=== PATIENT | male | born 1960 | race Caucasian/White ===

== ENCOUNTER 2017-05-04 20:01 | Emergency (ER) | payer BC, OTHER, SELFPAY ==
[2017-05-04 21:05] LABS: #Eosinphils 0.2 thou/uL (0.0-0.7); #Lymphocytes 0.9 thou/uL (1.20-3.40); #Monocytes 0.5 thou/uL (0.11-0.59); #Neutrophils 6.2 thou/uL (1.40-6.50); %Basophils 0.5 % (0.0-1.0); %Eosinophils 2.8 % (0.0-10.0); %Lymphocytes 11.7 % (21.0-51.0); %Monocytes 6.6 % (0.0-10.0); Hematocrit 46.5 % (42.0-52.0); White Blood Cell (WBC) Count 7.8 thou/uL (4.8-10.8)
[2017-05-04 21:25] LABS: ALT (SGPT) 42 U/L (8-55); AST (SGOT) 44 U/L (5-34); Alkaline Phosphatase 167 U/L (40-150); Anion Gap 19 mmol/L (10-20); BUN (Urea Nitrogen) 26 mg/dL (8.4-25.7); Bilirubin, Total 0.9 mg/dL (0.2-1.2); Calc. Creatinine Clearance 0 mL/min (70-130); Calcium 9.9 mg/dL (7.8-10.44); Carbon Dioxide 21 mmol/L (22-29); Chloride 104 mmol/L (98-107); Estimated GFR-MDRD 59; Globulin 4.2 g/dL (2.4-3.5); Protein, Total 8.4 g/dL (6.0-8.3)
--- NOTE | 2017-05-04 21:25 | RAD ---
PORTABLE CHEST ONE VIEW: Date: 05-04-17 Time: 8:37 p.m. History: Chest pain. FINDINGS: Comparison is made with exam 08-07-16. The heart size is borderline. No focal areas of pneumothorax, consolidation, aubree pulmonary edema o r pleural effusions are seen. IMPRESSION: No acute process. POS: [facility]
[2017-05-04 21:28] LABS: Troponin I 0.012 ng/mL (< 0.028)
[2017-05-04] MEDS ORDERED: Magnesium Sulfate 2 GM/100 ML BAG ONE (22:33)
== END 2017-05-04 23:55 | disposition left against medical advice (07) ==
LOC: ERS 20:01
DX: R07.9 Chest pain, unspecified (principal); E03.9 Hypothyroidism, unspecified; I25.10 Atherosclerotic heart disease of native coronary artery without angina pectoris; I11.0 Hypertensive heart disease with heart failure; I50.9 Heart failure, unspecified; I49.9 Cardiac arrhythmia, unspecified; I48.91 Unspecified atrial fibrillation; K21.9 Gastro-esophageal reflux disease without esophagitis; E11.9 Type 2 diabetes mellitus without complications; Z86.73 Personal history of transient ischemic attack (TIA), and cerebral infarction without residual deficits; Z79.82 Long term (current) use of aspirin; Z79.899 Other long term (current) drug therapy
CPT/HCPCS: 36415; 71010; 80053; 82553; 83735; 83880; 84484; 85025; 93005; 96365; J3475

== ENCOUNTER 2017-10-07 07:26 | Outpatient (CLI) | payer OTHER ==
--- NOTE | 2017-10-07 09:47 | CT ---
CT ABDOMEN: History: Possible incisional hernia. Pain for one year. Tummy tuck x 2. Technique: Contrast enhanced CT images of the abdomen obtained. IV and oral contrast was given. FINDINGS: The lung bases are unremarkable. Anterior lower abdominal surgical changes seen. The CT images do not extend inferiorly enough to cove r the entire incision site. If there is concern for anterior pelvic pathology including anterior carly ia correlation with CT of the pelvis is recommended. Correlate with location of the incision. The liver and spleen are unremarkable. The gallbladder has been surgically removed. The pancreas is u nremarkable. Adrenal glands and kidneys unremarkable. No evidence of periaortic lymphadenopathy is seen. The loops of small bowel and colon in the abdomen are unremarkable. IMPRESSION: 1. Post-surgical changes seen in the abdomen. 2. The pelvis could not be scanned as insurance would not give permission for us to scan the patient' s pelvis. If there is concern for pelvic pathology, repeat exam with CT of the pelvis is recommended. 3. Gastric mohini seen in the stomach. No other abdominal abnormality is seen. POS: [facility]
[2017-10-07] MEDS ORDERED: Iopamidol 370 76% 100 ML VIAL ONE (16:18)
== END 2017-10-07 07:27 | disposition home or self-care (01) ==
LOC: CT 07:26
PROVIDERS: ATTEND Family Medicine
DX: K43.2 Incisional hernia without obstruction or gangrene (principal); Z98.890 Other specified postprocedural states
CPT/HCPCS: 74160

== ENCOUNTER 2017-10-16 10:58 | Outpatient (CLI) | payer OTHER ==
[~2017-10-16 10:58] MED LIST: Iopamidol 370 76% 100 ML VIAL ONE
== END 2017-10-16 10:59 | disposition home or self-care (01) ==
LOC: BICCT 10:58
PROVIDERS: ATTEND Family Medicine
DX: K43.2 Incisional hernia without obstruction or gangrene (principal); Z98.890 Other specified postprocedural states
CPT/HCPCS: 72193

== ENCOUNTER 2018-03-26 10:51 | Inpatient (IN) | payer OTHER ==
[2018-03-26 11:37] LABS: #Basophils 0.1 thou/uL (0.0-0.2); #Eosinphils 0.1 thou/uL (0.0-0.7); #Monocytes 0.5 thou/uL (0.11-0.59); #Neutrophils 5.2 thou/uL (1.40-6.50); %Basophils 0.8 % (0.0-1.0); %Eosinophils 1.5 % (0.0-10.0); %Monocytes 6.9 % (0.0-10.0); %Neutrophils 75.8 % (42.0-75.0); Hemoglobin 16.6 g/dL (14.0-18.0); Mean Corpuscular HGB CONC 35.4 g/dL (32.0-36.0); Mean Corpuscular Hemoglobin 32.9 pg (27.0-31.0); Mean Platelet Volume 7.2 fL (7.4-10.4); Platelet Count 243 thou/uL (130-400); RBC Distribution Width 12.2 % (11.5-14.5); Red Blood Cell (RBC) Count 5.05 mill/uL (4.70-6.10); White Blood Cell (WBC) Count 6.9 thou/uL (4.8-10.8)
--- NOTE | 2018-03-26 11:40 | RAD ---
CHEST ONE VIEW: History: Emergency exam. Chest pain. Comparison: 05-04-17 FINDINGS: There is mild pulmonary venous congestion. No pneumothorax. No effusion. Cardiac silhouette is upper limits of normal. No acute osseous abnormality. IMPRESSION: Mild cardiomegaly and pulmonary venous congestion. POS: [facility]
[2018-03-26 11:58] LABS: ALT (SGPT) 32 U/L (8-55); AST (SGOT) 24 U/L (5-34); Albumin 4.1 g/dL (3.5-5.0); Alkaline Phosphatase 163 U/L (40-150); Anion Gap 13 mmol/L (10-20); BUN (Urea Nitrogen) 23 mg/dL (8.4-25.7); Bilirubin, Total 1.1 mg/dL (0.2-1.2); CK (CPK) 124 U/L (30-200); Calc. Creatinine Clearance 0 mL/min (70-130); Calcium 9.2 mg/dL (7.8-10.44); Carbon Dioxide 22 mmol/L (22-29); Chloride 102 mmol/L (98-107); Estimated GFR-MDRD 60; Globulin 3.5 g/dL (2.4-3.5); Glucose 356 mg/dL (70-105); Lipase 48 U/L (8-78); Potassium 4.1 mmol/L (3.5-5.1); Protein, Total 7.6 g/dL (6.0-8.3)
[2018-03-26 12:05] LABS: CKMB 3.3 ng/mL (0-6.6); Troponin I Less than 0.010 ng/mL (< 0.028)
[2018-03-26 12:12] LABS: Sodium 133 mmol/L (136-145)
[2018-03-26] MEDS ORDERED: Enoxaparin Sodium 30 MG/0.3 ML SYRINGE ONE ×2 (13:11→13:12)
[2018-03-26] MEDS ORDERED: Enoxaparin Sodium 100 MG/ML SYRINGE ONE (13:11)
--- NOTE | 2018-03-26 15:14 | HP ---
PRIMARY CARE PHYSICIAN: Dr. Irvin Monsalve. REASON FOR ADMISSION: Chest pain, atrial fibrillation with rapid ventricular response, acute on strip machine tender victorino systolic congestive heart failure exacerbation. HISTORY OF PRESENT ILLNESS: A 58-year-old male who has underlying history of hypertension, diabetes type 2, dyslipidemia, hypothyroidism, chronic systolic heart failure who presented to emergency room with complaint of chest pain and dyspnea. Patient reports that he was not feeling good for the last 2-3 days. He claims that on Friday, he worked very hard. He was in lot of stress on that . Last night he was having chest pain with diaphoresis. He thought indigestion and that is why he did not go to the hospital. This morning at work, he was feeling similar substernal chest pain w ith diaphoresis. He denies any associated nausea, but he was feeling shortness of breath. He denies any orthopnea, PND. He does report mild swelling. He was also feeling palpitation. He denies any dizziness or syncope. With these symptoms, he presented to emergency room, he was found with atrial fibrillation with RVR. In the emergency room, Cardizem drip was started. After that his heart rate w as under control. His chest x-ray showed pulmonary vascular congestion. The patient is being admitt ed to telemetry floor for further management. ALLERGIES: NEOSPORIN. CURRENT HOME MEDICATIONS: Ativan 1 mg as needed, pramipexole 0.5 mg at bedtime, glyburide 5 mg twice daily, Zoloft 50 mg daily, Synthroid 150 mcg p.o. daily, torsemide 40 mg twice daily, Protonix 40 mg p.o. daily, Ambien 10 mg at bedtime p.r.n., Aldactone 25 mg p.o. daily, Coreg 3.125 mg 3 times daily , potassium chloride 20 mEq twice daily, Lipitor 40 mg p.o. daily, aspirin 81 mg p.o. daily. REVIEW OF SYSTEMS: The following complete review of systems was negative, unless otherwise mentioned in the HPI or below: Constitutional: Weight loss or gain, ability to conduct usual activities. Skin: Rash, itching. Eyes: Double vision, pain. ENT/Mouth: Nose bleeding, neck stiffness, pain, tenderness. Cardiovascular: Palpitations, dyspnea on exertion, orthopnea. Respiratory: Shortness of breath, wheezing, cough, hemoptysis, fever or night sweats. Gastrointestinal: Poor appetite, abdominal pain, heartburn, nausea, vomiting, constipation, or diarr hea. Genitourinary: Urgency, frequency, dysuria, nocturia. Musculoskeletal: Pain, swelling. Neurologic/Psychiatric: Anxiety, depression. Allergy/Immunologic: Skin rash, bleeding tendency. Please see my HPI for pertinent positive and negative. All other review of systems reviewed and nega tive except as mentioned in the HPI. PAST MEDICAL HISTORY: Coronary artery disease with a history of one stent placed in 2013, chronic sy stolic heart failure with EF 25%-30%, history of left ventricular thrombus, hypertension, diabetes ty pe 2, paroxysmal atrial fibrillation, dyslipidemia, hypothyroidism. 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 PAST PSYCHIATRIC HISTORY: Reviewed and negative. FAMILY HISTORY: Positive for heart disease to several family members. His father also had 3 CABG. SOCIAL HISTORY: Patient lives at home. 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 He denies any smoking. He d rinks wine every day. He denies any other illicit drug abuse. EMERGENCY ROOM COURSE: Patient is given Lovenox 1 mg per kg, Cardizem drip was started. PHYSICAL EXAMINATION: VITAL SIGNS: When I saw at that time blood pressure 113/72, pulse 108 and irregular, respiratory rat e is 18, saturation 98% on room air, temperature 98.3. Weight 128 kilograms. GENERAL: The patient is currently alert, awake, no obvious acute distress. HEAD: Normocephalic, atraumatic. EYES: Pupils round, reactive to light. Extraocular muscle intact. ENT: Oropharynx within normal limits. Moist mucous membranes. No oral lesion, no pharyngeal erythe ma, no exudate. NECK: Supple, no JVD, no thyromegaly, no carotid bruit. LUNGS: Bibasilar coarse breath sounds. Reduced air entry. No accessory muscles of respiration in u se. CARDIAC: S1, S2 irregular. Systolic murmur noted at left lower sternal border as well as at apex. No gallop, no rub. ABDOMEN: Obesity present. Bowel sounds present, nontender, nondistended. No organomegaly, no mass, no suprapubic tenderness. BACK: Unremarkable, no CVA tenderness. EXTREMITIES: Upper extremity passive movements of all joints are normal. Lower extremity: Trace lo wer extremity edema noted. Good distal pulsation. SKIN: No skin rash. HEMATOLOGICAL SYSTEM: No lymphadenopathy. IMAGING DATA AND SIGNIFICANT LABORATORY DATA: EKG showing atrial fibrillation with rapid ventricular response. Chest x-ray, cardiomegaly with pulmonary vascular congestion. CBC: WBC 6.9, hemoglobin 16.6, platelet 243. BMP: Sodium 133, potassium 4.1, chloride 102, carbon dioxide 22, anion gap 13, BUN 23, creatinine 1.23, glucose 356, calcium 9.2. LFT: AST 24, ALT 32, alkaline phosphatase is 163 , albumin 4.1, lipase 48, CK 124, CK-MB 3.3, troponin I less than 0.010. ASSESSMENT AND PLAN/IMPRESSION: 1. Chest pain, most likely related with his underlying atrial fibrillation with rapid ventricular re sponse and congestive heart failure. We will do serial cardiac enzymes x3 and rule out acute coronar y syndrome. 2. Atrial fibrillation with rapid ventricular response. Continue Cardizem drip at a slow rate and t urn off if heart rate is less than 70 or blood pressure less than 100. Patient will need chronic ant icoagulation for high CHADS 2 score. We will continue Lovenox 1 mg per kg subcu twice daily. We spencer l consult Cardiology and we will obtain echocardiography. 3. Acute on chronic systolic congestive heart failure exacerbation stage C. The patient will be giv en Lasix 20 mg IV daily. The patient will need echocardiography to assess EF. If he has still a low EF then 35%, then we will consider AICD evaluation during this admission. Cardiology will be on the case. Based on his hemodynamics, we will consider beta jordon as well as MYLES inhibitor as tolerate d. 4. History of severe mitral regurgitation and tricuspid regurgitation based on prior echocardiograph y. We will repeat echocardiography to assess current status. 5. 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 We will continue patient's home dose of levothyroxine. 6. Hypertension. Currently, the patient is relatively low blood pressure because of Cardizem drip a nd that is why we will titrate blood pressure medication while in hospital. 7. Coronary artery disease. We will continue aspirin, statin, beta jordon therapy as tolerated. 8. Anxiety and depression. Continue home medication. 9. Diabetes type 2, not well controlled. We will continue with insulin as per sliding scale protoco l. Diabetic diet will be given. Resume patient's home medication and add glyburide. 10. Morbid obesity. Dietary education given, weight loss education given. 11. Deep venous thrombosis prophylaxis, patient is already on full dose of Lovenox therapy. 12. Gastrointestinal prophylaxis, Protonix 40 mg p.o. daily. CODE STATUS: The patient is FULL CODE. Patient does not have any surrogate decision maker. Disposition plan based on clinical course. We are expecting patient's stay in hospital more than 2 m idnights. Plan of care discussed with the patient in detail in the emergency room.
[2018-03-26] MEDS ORDERED: Acetaminophen 325 MG TAB PO PRN ×2 (15:19→16:21)
[2018-03-26] MEDS ORDERED: Ondansetron ODT 4 MG TAB SL PRN (15:19)
[2018-03-26] MEDS ORDERED: Ondansetron HCl/PF 4 MG/2 ML Vial IVP PRN ×2 (15:19→16:21)
[2018-03-26 15:55] VITALS: BMI 33.8
[2018-03-26] MEDS ORDERED: Artificial Tears 18 DROP/0.9 ML EA EYE PRN (16:21)
[2018-03-26] MEDS ORDERED: Milk Of Magnesia 30 ML UDCUP PO PRN (16:21)
[2018-03-26] MEDS ORDERED: Nitroglycerin 0.4 MG TAB (25 Tab Bottle) SL PRN (16:21)
[2018-03-26] MEDS ORDERED: Sodium Chloride 0.65% Nasal 44 ML BOT EA NARE PRN (16:21)
[2018-03-26] MEDS ORDERED: HumaLOG 300 UNITS/3 ML VIAL SC PRN (16:21)
[2018-03-26] MEDS ORDERED: Ondansetron ODT 4 MG TAB PO PRN (16:21)
[2018-03-26] MEDS ORDERED: Chloraseptic Spray 180 ml Bottle PO PRN (16:21)
[2018-03-26] MEDS ORDERED: hydrALAZINE 20 MG/ML VIAL SLOW IVP PRN (16:21)
[2018-03-26] MEDS ORDERED: HYDROcodone/Acetaminophen 5/325 mg Tablet PO PRN (16:21)
[2018-03-26] MEDS ORDERED: Loperamide HCl 2 MG CAP PO PRN (16:21)
[2018-03-26] MEDS ORDERED: Dextrose 50% Abboject 50 ML SYRINGE SLOW IVP PRN (16:21)
[2018-03-26] MEDS ORDERED: Eucerin (Mineral Oil/Petrolatum,White) 30 gm Jar TOP PRN (16:21)
[2018-03-26] MEDS ORDERED: Diltiazem 125 MG in Sodium Chloride 0.9% 100 ML IVPB SCH (16:21)
[2018-03-26] MEDS ORDERED: Loratadine 10 MG TAB PO PRN (16:21)
[2018-03-26] MEDS ORDERED: Dextrose 5% in Water 1,000 ML IV PRN (16:21)
[2018-03-26] MEDS ORDERED: Diabetic Tussin 200 MG/10 ML UDCUP PO PRN (16:21)
[2018-03-26] MEDS ORDERED: Senokot 8.6 MG TAB PO PRN (16:21)
[2018-03-26] MEDS ORDERED: Mag-Al 1200 mg/1200 mg/30 ML UDCUP PO PRN (16:21)
[2018-03-26 16:35] LABS: Troponin I 0.019 ng/mL (< 0.028)
[2018-03-26] MEDS: HumaLOG 300 UNITS/3 ML VIAL SC PRN (18:18)
[2018-03-26 19:14] LABS: Troponin I Less than 0.010 ng/mL (< 0.028)
[2018-03-26] MEDS: Carvedilol 3.125 MG TAB PO SCH (20:35)
[2018-03-26] MEDS: Pramipexole Di-HCl 0.25 MG TAB PO SCH (20:35)
[2018-03-26] MEDS: Enoxaparin Sodium 30 MG/0.3 ML SYRINGE SC SCH (20:37)
[2018-03-26] MEDS: Enoxaparin Sodium 100 MG/ML SYRINGE SC SCH (20:37)
[2018-03-26] MEDS: glyBURIDE 5 MG TAB PO SCH (20:37)
[2018-03-26] MEDS ORDERED: Dronedarone HCl 400 MG TAB PO SCH (21:00)
[2018-03-26] MEDS ORDERED: Enoxaparin Sodium 80 MG/0.8 ML SYRINGE SC SCH (21:00)
[2018-03-26] MEDS ORDERED: Atorvastatin Calcium 40 MG TAB PO SCH (21:00)
[2018-03-26 22:20] LABS: Bilirubin Negative (Negative); Blood, Urine Negative (Negative); Clarity CLEAR (Clear); Glucose, Urine (Dipstick) >=1000 mg/dL (Negative); Leukocyte Negative (Negative); Nitrite Negative (Negative); Protein, Urine (Dipstick) Negative (Neg-Trace); Specific Gravity, Urine 1.014 (1.002-1.036); pH, Urine 5.5 (5.0-9.0)
[2018-03-26 22:23] LABS: Bacteria/HPF None Seen HPF (None Seen); Hyaline Casts/LPF 0-3 HYALINE CAST LPF (0-3 Hyaline); RBC/HPF None Seen HPF (0-3); Squamous Epithelial 0-3 HPF (0-3); WBC/HPF 0-3 HPF (0-3)
[2018-03-26] MEDS: Zolpidem Tartrate 5 MG TAB PO PRN (23:44)
--- NOTE | 2018-03-27 02:10 | CON ---
DATE OF CONSULTATION: 03/26/2018 LOCATION: Room #[address] Garcia' nurse practitioner. PRIMARY CARE PHYSICIAN: Dr. Irvin Monsalve. PRIMARY PRESCRIPTION CLERK: Dr. Steven Woodward. REFERRING PHYSICIAN: Dr. Castellon. REASON FOR CARDIOLOGY CONSULTATION: Atrial fibrillation with rapid ventricular response and congesti ve heart failure. HISTORY OF PRESENT ILLNESS: Mr. Tellez is a 58-year-old male with a significant history of ischemic cardiomyopathy with chronic systolic heart failure, hypertension, insulin-dependent diabetes , dyslipidemia, thyroidectomy with hypothyroidism secondary to thyroidectomy and significant family h istory of coronary artery disease. The patient presents to the emergency department for fluttering i n his chest. This Friday, he works so hard outside under the hot weather. He was really stressed o ut that time and he started having really bad dry cough and cramping in his leg. Next day, he was do ing well, he did not have those symptoms. However, last night, feeling like heart jumping for 10 min utes, but he denies any other cardiac symptoms during that episode. In this morning around 09:00 to 10:30 until he arrived to the emergency department, he felt fluttering in his chest and he had broken out the sweating, feeling of heaviness in his chest, headache and lightheadedness. Due to those sym ptoms, he decided to present to the emergency department for further evaluation and treatment. At th e ER, a 12-lead EKG revealed the patient having atrial fibrillation with rapid ventricular response w ith heart rate up to 130-140. After patient received Cardizem drip, the patient converted back to si nus rhythm around 10:45. Then, the patient was transferred to the telemetry floor. Since then, the patient's heart rhythm remains in a sinus rhythm with heart rate 60-70s. The patient has a medical h istory of atrial fibrillation until 2-1/2 years ago. The patient was on amiodarone, but which was di scontinued due to secondary indication to the patient's history of some thyroid problem. The patient underwent a thyroidectomy in 2015. The patient does not have any atrial fibrillation since this adm ission. The patient's last EKG was done in 04/2017, which shows sinus rhythm. The patient underwent cardiac catheterization in 2012, which shows 20% stenosis in the RCA and left c ircumflex and 100% in the LAD. The patient had a stent placement x1 to LAD in 2012. The patient has a history of chronic systolic heart failure. Last EKG was done in 09/[address] Woodward's office which shows EF of 40% to 45% and diastolic dysfunction, apical wall dyskinesis, mild LAD, moderate mi tral valve regurgitation, aortic valve is sclerotic but opened well and mild tricuspid regurgitation. The patient's last stress test was done in 07/2016, which shows large OH in an anterior wall and ap ex, left ventricular chamber dilation and no reversible ischemia. During the initial Cardiology cons ult assessment, the patient denies chest pain, heaviness, tightness, discomfort in his chest, palpita tion or fluttering, shortness of breath, dizziness, lightheadedness, or any other cardiac complaints. PAST MEDICAL HISTORY: 1. Moderate left ventricular dysfunction, EF of 30% to 40%. Left ventricle apical thrombosis in 2012, status post stent x1 in the LAD in 04/2013, atrial fibrillation with RVR which convert back to IV amiodarone. The patient has atrial fibrillation about 2-1/2 years ago. 2. Insulin-dependent diabetes. 3. Hypertension. 4. Hyperlipidemia. 5. CVA in 2012 with no residual. 6. Pericarditis in 10/2013. PAST SURGICAL HISTORY: 1. Gastric sleeve in 2007. 2. Stent placement in the LAD in 04/2013. 3. Abdominoplasty with the operation for retained sponge. 4. Cholecystectomy in 2013. 5. Thyroidectomy in 2015. The patient does have a TSH checked every 6 months. FAMILY HISTORY: There is a significant family history of hypertension, diabetes, and coronary artery disease. The patient's father underwent 2 CABG surgery and history of CVA. The patient's mother roberto s diabetes, hypertension, and CVA. The patient has 3 siblings who all have hypertension, diabetes, a nd coronary artery disease. SOCIAL HISTORY: The patient is single. The patient lives by himself; however, the patient has a goo d support from the family and his friends who live close by. The patient denied tobacco, illicit andrea g abuse. The patient enjoyed occasional alcohol once a month. He drinks one cup of coffee in the mo rning. ALLERGIES: He is allergic to , BACTRIM, NEOMYCIN and SULFATE. HOME MEDICATIONS: Ambien 10 mg once a day, glyburide 5 mg twice a day, atorvastatin 40 mg once a day , aspirin 81 mg once a day, Zoloft 50 mg once a day, Protonix 40 mg twice a day, potassium chloride 2 0 mEq once a day, Mirapex 0.5 mg once a day, spironolactone 25 mg once a day, torsemide 20 mg twice a day, lorazepam 1 mg once a day at night as needed, levothyroxine 150 mcg once a day, carvedilol 3.12 5 mg 3 times a day, magnesium oxide 500 mg once a day and Levemir twice a day. REVIEW OF SYSTEMS: A 12-point review of systems is negative, unless otherwise mentioned in the HPI. PHYSICAL EXAMINATION: GENERAL: Well-developed and well-nourished without any acute distress. HEAD: Normocephalic and atraumatic. EYES: Extraocular muscle movements are intact. ENT AND MOUTH: Oral and nasal mucosa are moist without lesion. NECK: Supple and normal range of motion. No JVD noted. RESPIRATORY: Clear to auscultation bilaterally. No rales, rhonchi or wheezing noted. CARDIOVASCULAR: Regular rate and rhythm. Normal S1, S2. There are no S3 or S4. No murmurs, hives, or thrills noted. Carotid pulses are present without bruits or thrills. They have 2+ pulses in the bilateral lower extremities. No edema. ABDOMEN: Nontender. No mass to palpate. Bowel sounds are present. MUSCULOSKELETAL: The patient able to move all extremities without any difficulty. The patient denie d any claudication. NEUROLOGIC: The patient is alert and oriented x4. PSYCHIATRIC: Mood is appropriate. IMAGING: The patient's chest x-ray shows mild cardiomegaly with pulmonary venous congestion. LABORATORY DATA: WBC 6.9, hemoglobin 16.6, hematocrit 46.9, platelet 243. Sodium 133, potassium 4.1 , BUN 23, creatinine 1.23, glucose 356, AST 24, ALT 32, alkaline phosphate 163, creatinine kinase is 124, CK-MB is 3.3, troponin less than 0.010 and next one 0.019, lipase 48. ASSESSMENT AND PLAN: 1. Atrial fibrillation with rapid ventricular response. The patient has converted back to sinus rhy thm with diltiazem IV. However, the patient had a history of stent placement and last stress test sh owing no reversible ischemia; however, we would like to start Multaq instead of flecainide. Multaq 4 00 mg twice a day and he is on Lovenox twice a day. We would like to continue and we would like defe r to Dr. Woodward for oral anticoagulant management. 2. Ischemic cardiomyopathy. The last echocardiogram was on 09/2017 showed ejection fraction of 40% to 45%. The patient is stable. The patient denied any congestive heart failure symptom at this [facility]. His condition is stable with carvedilol, MYLES inhibitor, and Lasix 20 mg IV push twice a day. 3. Coronary artery disease with a history of stent placement in LAD in 2012. The patient's conditio n is stable at this moment. We would like to continue current medication. 4. Hypertension. The patient's blood pressure is stable at this moment with current medication. 5. Insulin-dependent diabetes. The patient is on a.c. and at bedtime blood glucose check with slidi ng scale insulin, which is managed by the primary care doctor. 6. Hyperlipidemia. The patient is on Lipitor 40 mg 1 every night. 7. Hypothyroidism. According to the patient, the patient's levothyroxine dosage was increased last time when he followed up with his doctor. His TSH has not been checked, we will check this moment. We would like to go ahead to recheck the patient's TSH at this time. Thank you for allowing the Cardiology Service to participate in care of this patient. We will follow along with the patient's care team and make recommendations as appropriate. From tomorrow, Dr. Kristan zhu will follow this patient.
[2018-03-27] MEDS: Levothyroxine 150 MCG TAB PO SCH (05:30)
[2018-03-27] MEDS: Furosemide 20 MG/2 ML VIAL SLOW IVP SCH ×2 (05:31→15:18)
[2018-03-27 06:08] LABS: #Basophils 0.1 thou/uL (0.0-0.2); #Eosinphils 0.2 thou/uL (0.0-0.7); #Lymphocytes 1.3 thou/uL (1.20-3.40); #Monocytes 0.5 thou/uL (0.11-0.59); #Neutrophils 3.8 thou/uL (1.40-6.50); %Basophils 1.2 % (0.0-1.0); %Eosinophils 2.9 % (0.0-10.0); %Lymphocytes 21.8 % (21.0-51.0); %Monocytes 8.7 % (0.0-10.0); %Neutrophils 65.4 % (42.0-75.0); Hemoglobin 14.7 g/dL (14.0-18.0); Mean Corpuscular HGB CONC 35.9 g/dL (32.0-36.0); Mean Corpuscular Hemoglobin 33.2 pg (27.0-31.0); Mean Corpuscular Volume 92.5 fL (78.0-98.0); Platelet Count 193 thou/uL (130-400); RBC Distribution Width 12.1 % (11.5-14.5); Red Blood Cell (RBC) Count 4.44 mill/uL (4.70-6.10); White Blood Cell (WBC) Count 5.8 thou/uL (4.8-10.8)
[2018-03-27 06:22] LABS: INR-International Normal Ratio 1.1; Prothrombin Time 14.1 SEC (12.0-14.7)
[2018-03-27 06:31] LABS: Anion Gap 11 mmol/L (10-20); BUN (Urea Nitrogen) 20 mg/dL (8.4-25.7); Calc. Creatinine Clearance 146 mL/min (70-130); Calcium 8.8 mg/dL (7.8-10.44); Carbon Dioxide 27 mmol/L (22-29); Cardiac Risk 3.1 (Less than 4.5); Chloride 101 mmol/L (98-107); Cholesterol 118 mg/dl (< 200 Desired); Estimated GFR-MDRD 78; Glucose 229 mg/dL (70-105); HDL Cholesterol 38 mg/dL (>60 Neg Risk); LDL Cholesterol, Calculated 60 mg/dL; Magnesium 1.8 mg/dL (1.6-2.6); Potassium 3.1 mmol/L (3.5-5.1); Sodium 136 mmol/L (136-145); Triglycerides 100 mg/dL (Less than 150); Uric Acid 7.8 mg/dL (3.5-7.2)
[2018-03-27] MEDS: Magnesium Oxide 250 MG TAB PO SCH (08:47)
[2018-03-27] MEDS: Dronedarone HCl 400 MG TAB PO SCH ×2 (08:47→17:38)
[2018-03-27] MEDS: Atorvastatin Calcium 40 MG TAB PO SCH (08:47)
[2018-03-27] MEDS: glyBURIDE 5 MG TAB PO SCH ×2 (08:48→21:21)
[2018-03-27] MEDS: Potassium Chloride 20 MEQ TAB PO SCH ×2 (08:48→17:38)
[2018-03-27] MEDS: Spironolactone 25 MG TAB PO SCH (08:48)
[2018-03-27] MEDS: Carvedilol 3.125 MG TAB PO SCH ×2 (08:49→21:21)
[2018-03-27] MEDS: Lisinopril 2.5 MG TAB PO SCH (08:50)
[2018-03-27] MEDS: Enoxaparin Sodium 100 MG/ML SYRINGE SC SCH ×2 (08:51→21:22)
[2018-03-27] MEDS: Enoxaparin Sodium 30 MG/0.3 ML SYRINGE SC SCH ×2 (08:51→21:22)
--- NOTE | 2018-03-27 11:01 | PDOC.PN ---
- Subjective Encounter Start Date: 03/27/18 Encounter Start Time: 08:40 -: old records requested/rev Patient seen and examined. No new complaints. No overnight events pt is converted to nsr feels better, no chest pain or dyspnea - Objective Resuscitation Status: Resuscitation Status FULL:Full Resuscitation MAR Reviewed: Yes Vital Signs & Weight: Vital Signs (12 hours) Temp Pulse Resp BP BP Pulse Ox 03/27/18 08:50 58 L 105/60 03/27/18 08:00 98.1 F 58 L 18 97 03/27/18 07:59 98.1 F 58 L 18 105/60 97 03/27/18 04:00 51 L 16 96/60 Weight Weight 279 lb I&O: 03/26/18 03/27/18 03/28/18 06:59 06:59 06:59 Intake Total 480 Balance 480 Result Diagrams: 03/27/18 05:23 03/27/18 05:23 Additional Labs: Accuchecks 03/27/18 03/26/18 03/26/18 06:03 21:54 16:41 POC Glucose 203 H 318 H 277 H EKG Reviewed by me: Yes (nsr) Phys Exam - Physical Examination Constitutional: NAD HEENT: PERRLA, moist MMs, sclera anicteric Neck: no JVD, supple Respiratory: no wheezing, no rales, no rhonchi Cardiovascular: RRR, no significant murmur, no rub Gastrointestinal: soft, non-tender, no distention, positive bowel sounds obesity+ Musculoskeletal: no edema, pulses present Neurological: non-focal, normal sensation, moves all 4 limbs Lymphatic: no nodes Psychiatric: normal affect, A&O x 3 Skin: no rash, normal turgor Dx/Plan (1) Acute on chronic systolic ACC/AHA stage C congestive heart failure Code(s): I50.23 - ACUTE ON CHRONIC SYSTOLIC (CONGESTIVE) HEART FAILURE Status : Acute (2) Atrial fibrillation with RVR Code(s): I48.91 - UNSPECIFIED ATRIAL FIBRILLATION Status: Acute (3) Chest pain Code(s): R07.9 - CHEST PAIN, UNSPECIFIED Status: Acute (4) Anxiety and depression Code(s): F41.9 - ANXIETY DISORDER, UNSPECIFIED; F32.9 - MAJOR DEPRESSIVE DISORDER, SINGLE EPISODE, UNSPECIFIED Status: Chronic (5) CAD (coronary artery disease) Code(s): I25.10 - ATHSCL HEART DISEASE OF [place] CORONARY ARTERY W/O ANG PCTRS Status: Chronic (6) Diabetes type 2, controlled Code(s): E11.9 - TYPE 2 DIABETES MELLITUS WITHOUT COMPLICATIONS Status: Chronic (7) Dyslipidemia Code(s): E78.5 - HYPERLIPIDEMIA, UNSPECIFIED Status: Chronic (8) GERD (gastroesophageal reflux disease) Code(s): K21.9 - GASTRO-ESOPHAGEAL REFLUX DISEASE WITHOUT ESOPHAGITIS Status: Chronic (9) Hypertension Code(s): I10 - ESSENTIAL (PRIMARY) HYPERTENSION Status: Chronic (10) Hypothyroidism Code(s): E03.9 - HYPOTHYROIDISM, UNSPECIFIED Status: Chronic (11) Severe mitral regurgitation by prior echocardiogram Code(s): I34.0 - NONRHEUMATIC MITRAL (VALVE) INSUFFICIENCY Status: Chronic (12) Severe tricuspid regurgitation by prior echocardiogram Code(s): I07.1 - RHEUMATIC TRICUSPID INSUFFICIENCY Status: Chronic (13) Hypokalemia Code(s): E87.6 - HYPOKALEMIA Status: Acute - Plan cont current plan of care * afib converted to nsr * he has high chads2 score, will need correction oral anticoagulant * medication reviewed as below * symptomatic treatment * continue lasix * cardiology following * repeat echo pending. * replace potassium Review of Systems - Review of Systems Eyes: negative: Pain, Vision Change, Conjunctivae Inflammation, Eyelid Inflammation, Redness, Other ENT: negative: Ear Pain, Ear Discharge, Nose Pain, Nose Discharge, Nose Congestion, Mouth Pain, Mouth Swelling, Throat Pain, Throat Swelling, Other Respiratory: negative: Cough, Dry, Shortness of Breath, Hemoptysis, SOB with Excertion, Pleuritic Pain, Sputum, Wheezing Cardiovascular: negative: chest pain, palpitations, orthopnea, paroxysmal nocturnal dyspnea, edema, light headedness, other Gastrointestinal: negative: Nausea, Vomiting, Abdominal Pain, Diarrhea, Constipation, Melena, Hematochezia, Other Genitourinary: negative: Dysuria, Frequency, Incontinence, Hematuria, Retention , Other Musculoskeletal: negative: Neck Pain, Shoulder Pain, Arm Pain, Back Pain, Hand Pain, Leg Pain, Foot Pain, Other Skin: negative: Rash, Lesions, Ramirez, Bruising, Other - Medications/Allergies Allergies/Adverse Reactions: Allergies Allergy/AdvReac Type Severity Reaction Status Date / Time bacitracin Allergy Mild Rash Verified 03/26/18 15:48 [From Neosporin ([id number])] bacitracin zinc Allergy Mild Rash Verified 03/26/18 15:48 [From Neosporin ([id number])] neomycin sulfate Allergy Mild Rash Verified 03/26/18 15:48 [From Neosporin ([id number])] polymyxin B Allergy Mild Rash Verified 03/26/18 15:48 [From Neosporin ([id number])] Medications: Current Medications Acetaminophen (Tylenol) 650 mg PO Q4H PRN PRN Reason: Headache/Fever or Pain Hydrocodone Bitart/Acetaminophen ([place] 5/325) 1 tab PO Q4H PRN PRN Reason: Moderate Pain (4-6) Al Hydroxide/Mg Hydroxide (Maalox) 30 ml PO Q6H PRN PRN Reason: Heartburn or Indigestion Artificial Tears (Tears Naturale) 0 drop EA EYE PRN PRN PRN Reason: Dry Eyes Aspirin (Aspirin Chewable) 81 mg PO DAILY [facility] [place] Last Admin: 03/27/18 08:48 Dose: 81 mg Atorvastatin Calcium (Lipitor) 40 mg PO DAILY [facility] [place] Last Admin: 03/27/18 08:47 Dose: 40 mg Carvedilol (Coreg) 3.125 mg PO BID [facility] [place] Last Admin: 03/27/18 08:49 Dose: 3.125 mg Dextrose/Water (Dextrose 50%) 25 gm SLOW IVP PRN PRN PRN Reason: Hypoglycemia Dronedarone (Multaq) 400 mg PO BID-[facility] Last Admin: 03/27/18 08:47 Dose: 400 mg Enoxaparin Sodium (Lovenox) 100 mg SC 0900,2100 [facility] [place] Last Admin: 03/27/18 08:51 Dose: 100 mg Enoxaparin Sodium (Lovenox) 30 mg SC BID [facility] [place] Last Admin: 03/27/18 08:51 Dose: 30 mg Furosemide (Lasix) 20 mg SLOW IVP 0600,1400 [facility] [place] Last Admin: 03/27/18 05:31 Dose: 20 mg Glucagon (Glucagon) 1 mg IM PRN PRN PRN Reason: Hypoglycemia Glyburide (Diabeta) 5 mg PO BID [facility] [place] Last Admin: 03/27/18 08:48 Dose: 5 mg Guaifenesin (Robitussin Sf) 200 mg PO Q4H PRN PRN Reason: Cough Hydralazine HCl (Apresoline) 10 mg SLOW IVP Q4H PRN PRN Reason: Systolic BP > 180 Dextrose/Water (D5w) 1,000 mls @ 0 mls/hr IV .Q0M PRN PRN Reason: Hypoglycemia Diltiazem HCl 125 mg/ Sodium (Chloride) 125 mls @ 5 mls/hr IVPB INF [facility]; Protocol Insulin Human Lispro (Humalog) 0 units SC .AGGRESSIVE SLIDING PRN PRN Reason: Aggressive Correctional Scale Last Admin: 03/26/18 18:18 Dose: 9 units Insulin Human Lispro (Humalog) 0 units SC .BEDTIME SLIDING SC PRN PRN Reason: Bedtime Correctional Scale Levothyroxine Sodium (Synthroid) 150 mcg PO 0600 [facility] [place] Last Admin: 03/27/18 05:30 Dose: 150 mcg Lisinopril (Zestril) 2.5 mg PO DAILY [facility] [place] Last Admin: 03/27/18 08:50 Dose: Not Given Loperamide HCl (Imodium) 2 mg PO PRN PRN PRN Reason: Diarrhea/Loose Stools Loratadine (Claritin) 10 mg PO DAILYPRN PRN PRN Reason: Sinus Symptoms Magnesium Hydroxide (Milk Of Magnesium) 30 ml PO DAILYPRN PRN PRN Reason: Constipation Magnesium Oxide (Magnesium Oxide) 500 mg PO [facility] Last Admin: 03/27/18 08:47 Dose: 500 mg Mineral Oil/White Petrolatum (Eucerin Cream) 0 gm TOP BIDPRN PRN PRN Reason: Dry Skin Nitroglycerin (Nitrostat) 0.4 mg SL Q5MIN PRN PRN Reason: Chest Pain Ondansetron HCl (Zofran Odt) 4 mg PO Q6H PRN PRN Reason: Nausea/Vomiting Ondansetron HCl (Zofran) 4 mg IVP Q6H PRN PRN Reason: Nausea/Vomiting Pantoprazole Sodium (Protonix) 40 mg PO DAILY [facility] [place] Last Admin: 03/27/18 08:50 Dose: 40 mg Phenol (Chloraseptic [place] 180 Ml Bot) 0 ml PO PRN PRN PRN Reason: Sore Throat Potassium Chloride (K-Dur) 40 meq PO BID-[facility] Stop: 03/27/18 17:01 Last Admin: 03/27/18 08:48 Dose: 40 meq Pramipexole Dihydrochloride (Mirapex) 0.5 mg PO HS [facility] [place] Last Admin: 03/26/18 20:35 Dose: Not Given Senna (Senokot) 2 tab PO HSPRN PRN PRN Reason: Constipation Sertraline HCl (Zoloft) 50 mg PO DAILY [facility] [place] Last Admin: 03/27/18 08:48 Dose: 50 mg Sodium Chloride ([place] Nasal [place] 0.65%) 0 ml EA NARE QIDPRN PRN PRN Reason: Nasal Congestion Spironolactone (Aldactone) 12.5 mg PO DAILY [facility] [place] Last Admin: 03/27/18 08:48 Dose: 12.5 mg Zolpidem Tartrate (Ambien) 5 mg PO HSPRN PRN PRN Reason: Insomnia Last Admin: 03/26/18 23:44 Dose: 5 mg
[2018-03-27] MEDS: HumaLOG 300 UNITS/3 ML VIAL SC PRN ×2 (11:05→17:56)
[2018-03-27] MEDS: Apixaban 5 MG TAB PO SCH (21:21)
[2018-03-27] MEDS: Amiodarone 200 MG TAB PO SCH (21:21)
[2018-03-27] MEDS: Pramipexole Di-HCl 0.25 MG TAB PO SCH (21:24)
[2018-03-27] MEDS: Zolpidem Tartrate 5 MG TAB PO PRN (21:24)
[2018-03-28 04:18] VITALS: TEMP 97.6
[2018-03-28] MEDS: Levothyroxine 150 MCG TAB PO SCH (05:03)
[2018-03-28 06:06] LABS: INR-International Normal Ratio 1.2; Prothrombin Time 14.8 SEC (12.0-14.7)
[2018-03-28 07:40] LABS: Anion Gap 11 mmol/L (10-20); BUN (Urea Nitrogen) 13 mg/dL (8.4-25.7); Calc. Creatinine Clearance 158 mL/min (70-130); Carbon Dioxide 28 mmol/L (22-29); Chloride 102 mmol/L (98-107); Estimated GFR-MDRD 86; Glucose 162 mg/dL (70-105); Magnesium 1.7 mg/dL (1.6-2.6); Potassium 3.8 mmol/L (3.5-5.1); Sodium 137 mmol/L (136-145)
[2018-03-28] MEDS ORDERED: Furosemide 40 MG TAB PO SCH (09:00)
[2018-03-28] MEDS: Magnesium Oxide 250 MG TAB PO SCH (09:09)
[2018-03-28] MEDS: Amiodarone 200 MG TAB PO SCH (09:10)
[2018-03-28] MEDS: Apixaban 5 MG TAB PO SCH (09:10)
[2018-03-28] MEDS: Atorvastatin Calcium 40 MG TAB PO SCH (09:11)
[2018-03-28] MEDS: Carvedilol 3.125 MG TAB PO SCH (09:11)
[2018-03-28] MEDS: glyBURIDE 5 MG TAB PO SCH (09:12)
[2018-03-28] MEDS: Lisinopril 2.5 MG TAB PO SCH (09:12)
[2018-03-28] MEDS: Spironolactone 25 MG TAB PO SCH (09:13)
--- NOTE | 2018-03-28 10:34 | DIS ---
DATE OF ADMISSION: 03/26/2018 DATE OF DISCHARGE: 03/28/2018 PRIMARY CARE PHYSICIAN: Irvin Monsalve M.D. DISCHARGE DISPOSITION: Home. PRIMARY DISCHARGE DIAGNOSES: 1. Acute on chronic systolic stage C congestive heart failure exacerbation. 2. Atrial fibrillation with rapid ventricular response. 3. Chest pain due to problem #1 and #2. 4. Hypokalemia, corrected. SECONDARY DISCHARGE DIAGNOSES: Chronic systolic heart failure, history of mitral and tricuspid regur gitation, hypothyroidism, hypertension, gastroesophageal reflux disease, dyslipidemia, diabetes type 2, coronary artery disease, obesity with BMI 34. PRIMARY PROCEDURES/OPERATIONS: None. RADIOLOGICAL INVESTIGATION: Chest x-ray showed pulmonary vascular congestion. Echocardiography show ed EF 35%-40%, moderate MR, mild TR, diastolic dysfunction. SIGNIFICANT LABORATORY DATA: WBC 5.8, hemoglobin 14.7, platelet 193. INR 1.2, sodium 137, potassium 3.8, BUN 13, creatinine 0.91, calcium 9.0, magnesium 1.7. Urinalysis normal. DISCHARGE MEDICATIONS: The patient will continue amiodarone 200 mg 2 tablets b.i.d. for 2 weeks, the n two tablets daily for 2 weeks and then 200 mg daily, Eliquis 5 mg p.o. b.i.d., aspirin 81 mg p.o. d aily, Coreg 3.125 mg p.o. b.i.d., Lasix 40 mg p.o. b.i.d., lisinopril 2.5 mg p.o. daily, Lipitor 40 m g p.o. daily, glyburide 5 mg p.o. b.i.d., Synthroid 150 mcg p.o. daily, Protonix 40 mg p.o. b.i.d., p otassium chloride 20 mEq p.o. daily, Mirapex 0.5 mg p.o. daily, Zoloft 50 mg p.o. daily, Aldactone 25 mg p.o. daily, Ambien 10 mg p.o. at bedtime p.r.n., lorazepam 1 mg p.o. at bedtime p.r.n., magnesium oxide 500 mg p.o. daily. CONTRAINDICATIONS: None. CODE STATUS: FULL CODE. INPATIENT CONSULTANTS: Cardiology group was following while in hospital. TEST RESULTS PENDING ON DISCHARGE: None. ALLERGIES: BACITRACIN, NEOMYCIN and ZINC. DISCHARGE PLAN: Post hospital, the patient will follow up with primary care physician in 1 week. Th e patient will make appointment with Dr. Woodward as instructed. He is instructed to follow up with [facility]. HOSPITAL COURSE: A 58-year-old male who was admitted by me on 03/26/2018. Please see my HPI for fur ther detail. The patient was having increasing shortness of breath, palpitation, chest discomfort an d dizziness. He was diagnosed with acute on chronic systolic congestive heart failure exacerbation a s well as atrial fibrillation with rapid ventricular response. He was admitted to telemetry floor. We treated him with a Cardizem drip. He spontaneously subsequently converted to sinus rhythm. His c ongestive heart failure, treated with IV Lasix. Cardiology was consulted and they agreed with the [facility] anticoagulation. Initially, we gave him Lovenox and subsequently we discussed the risk and primitivo efit of newer anticoagulant therapy and the patient agreed to continue with Eliquis, which was prescr ibed upon discharge. This patient has high CHADS 2 score and that is why he needs chronic anticoagul ation in view of paroxysmal atrial fibrillation. Regarding congestive heart failure, the patient is euvolemic now. He is on room air. He is ambulatory, tolerating p.o. well. He is asymptomatic and h e wants to go home. Regarding atrial fibrillation, cardiology initially started Multaq and subsequen tly they changed to amiodarone tapering dose prescription given by Dr. Woodward. The patient will co ntinue the Eliquis for anticoagulation therapy. PHYSICAL EXAMINATION: The patient is seen and examined at bedside today. VITAL SIGNS: Currently, temperature 97.6, pulse 64, respiratory rate 14, saturation 97% on room air, blood pressure 105/59, weight 279 pounds. GENERAL: The patient is currently alert, awake, no obvious acute distress. HEAD: Normocephalic, atraumatic. EYES: Pupils round, reactive to light. Extraocular muscle intact. ENT: Oropharynx within normal limits. Moist mucous membranes. No oral lesion, no pharyngeal erythe ma, no exudate. NECK: Supple, no JVD, no thyromegaly, no carotid bruit. LUNGS: Clear to auscultation without any rhonchi or rales. CARDIAC: S1, S2 regular without any murmur. ABDOMEN: Soft and benign. EXTREMITIES: No edema. NEUROLOGIC: Nonfocal examination. Overall, the patient is medically stable for discharge today.
[2018-03-28 10:42] VITALS: BP 117/64
--- NOTE | 2018-03-28 14:31 | ADD-CON ---
ADDENDUM DATE OF CONSULTATION: 03/26/2018 DATE OF ADMISSION: 03/26/2018 INDICATION FOR CONSULTATION: This is a 58-year-old gentleman who has atrial fibrillation with rapid ventricular response. Please refer to notes already dictated by the nurse practitioner, Akila Lott. This gentleman has had history of atrial fibrillation in the past, was on amiodarone in the past. Then, he developed thyroid problems, required I believe a thyroidectomy. He then has had no significant episodes of atrial fibrillation and now has developed in the last day or so fast heart rate, palpitations, and then presented to the emergency room and was found to have atrial fibrillation with rapid ventricular response, was given IV diltiazem and has converted back to normal sinus rhythm. He has had a history of coronary artery disease in the past, has undergone angioplasty and stent placement. He has had some decrease in left ventricular systolic function, which has actually improved since previous echocardiograms or stress testing. He had a stress test, I believe in 2016, which showed no evidence of ischemia, but he did have evidence of a scar in the anterior wall and apex. His echocardiogram in September of this year showed ejection fraction of 40%-45% with moderate mitral valve regurgitation and left atrial dilatation. He is very comfortable, has no complaints after he was converted back to sinus rhythm. PAST MEDICAL HISTORY, SOCIAL HISTORY, FAMILY HISTORY, REVIEW OF SYSTEMS: Please refer to the notes dictated by the nurse practitioner. PHYSICAL EXAMINATION: GENERAL: Reveals a very pleasant, well-developed, well-nourished gentleman who is in no acute distress. He is alert and oriented. VITAL SIGNS: Stable. He is afebrile, blood pressure is 109/69, respiratory rate 17, heart rate is about 80 beats per minute and is regular. HEENT: Unremarkable. CHEST: Clear to auscultation without rales, rhonchi, or wheezing. CARDIOVASCULAR: Exam reveals a regular rate and rhythm, normal S1, S2. I cannot hear any significant S3, S4. There were no significant murmurs, heaves, thrills, bruits, or rubs. He does have a very soft systolic murmur at the apex. ABDOMEN: Shows obesity with positive bowel sounds. EXTREMITIES: Show no clubbing, cyanosis, or edema. Pedal pulses are present. NEUROLOGIC: The patient appears to be intact without any focal motor deficits. SKIN: Warm and dry. IMAGING: The admission EKG did show decreased R-wave progression in V1 through V3 with Q-waves in V1 and V2 compared with a previous anteroseptal myocardial infarction. There was no evidence of ischemia with any ST segment elevations and I believe his enzymes have not been indicative of myocardial infarction and these troponins have remained negative. IMPRESSION: 1. Atrial fibrillation with rapid ventricular response, we will need to find an anti-arrhythmic medication for this gentleman or could discuss this case with zyglo inspector for possible ablation, but at this time, we will start him on Multaq 400 mg b.i.d. Due to his history of coronary artery disease, he may have underlying ischemia, has not yet been determined and he may need to undergo a repeat stress testing or cardiac catheterization to determine whether or not these may have an ischemic basis for the atrial fibrillation. 2. History of diabetes, blood sugar is elevated. We will leave the discretion with primary care physician. Further care of the patient will be determined by Dr. Woodward when he sees the patient tomorrow. We will keep the patient n.p.o. tomorrow morning in case the Dr. Woodward wishes to either perform a possible cardiac catheterization or further stress testing of the patient. We will also continue the Lovenox at this time, but we will hold it tonight. SUZI
== END 2018-03-28 11:16 | disposition home or self-care (01) | DRG 308 ==
LOC: ERS 10:51 → 2NO 15:06
PROVIDERS: ADMIT Internal Medicine; ATTEND Internal Medicine
DX: I48.0 Paroxysmal atrial fibrillation (principal); I50.23 Acute on chronic systolic (congestive) heart failure; I11.0 Hypertensive heart disease with heart failure; F41.9 Anxiety disorder, unspecified; F32.9 Major depressive disorder, single episode, unspecified; I25.10 Atherosclerotic heart disease of native coronary artery without angina pectoris; E11.9 Type 2 diabetes mellitus without complications; E78.5 Hyperlipidemia, unspecified; K21.9 Gastro-esophageal reflux disease without esophagitis; E03.9 Hypothyroidism, unspecified; I08.1 Rheumatic disorders of both mitral and tricuspid valves; E87.6 Hypokalemia; Z86.73 Personal history of transient ischemic attack (TIA), and cerebral infarction without residual deficits; I25.2 Old myocardial infarction; E66.01 Morbid (severe) obesity due to excess calories; Z68.34 Body mass index [BMI] 34.0-34.9, adult; Z95.5 Presence of coronary angioplasty implant and graft; I25.5 Ischemic cardiomyopathy
CPT/HCPCS: 36415; 36416; 71045; 80048; 80053; 80061; 81001; 82550; 82553; 83690; 83735; 83880; 84443; 84484; 84550; 85025; 85610; 93005; 93306; 96365; 96366; 96372; J1650; J1940; J7050

== ENCOUNTER 2018-07-07 12:54 | Emergency (ER) | payer OTHER ==
[2018-07-07 13:42] LABS: #Lymphocytes 0.4 thou/uL (1.20-3.40); #Neutrophils 8.6 thou/uL (1.40-6.50); %Basophils 0.5 % (0.0-1.0); %Eosinophils 0.3 % (0.0-10.0); %Lymphocytes 3.8 % (21.0-51.0); %Monocytes 9.9 % (0.0-10.0); %Neutrophils 85.5 % (42.0-75.0); Mean Corpuscular HGB CONC 32.2 g/dL (32.0-36.0); Mean Corpuscular Hemoglobin 30.8 pg (27.0-31.0); Mean Corpuscular Volume 95.8 fL (78.0-98.0); Mean Platelet Volume 7.3 fL (7.4-10.4); Platelet Count 151 thou/uL (130-400); RBC Distribution Width 11.8 % (11.5-14.5); Red Blood Cell (RBC) Count 4.88 mill/uL (4.70-6.10)
[2018-07-07] MEDS ORDERED: Acetaminophen 500 MG TAB ONE (13:57)
[2018-07-07 14:27] LABS: ALT (SGPT) 55 U/L (8-55); AST (SGOT) 45 U/L (5-34); Albumin 3.9 g/dL (3.5-5.0); Alkaline Phosphatase 132 U/L (40-150); Anion Gap 13 mmol/L (10-20); BUN (Urea Nitrogen) 12 mg/dL (8.4-25.7); Bilirubin, Total 1.2 mg/dL (0.2-1.2); Calc. Creatinine Clearance 0 mL/min (70-130); Calcium 9.3 mg/dL (7.8-10.44); Carbon Dioxide 27 mmol/L (22-29); Chloride 94 mmol/L (98-107); Estimated GFR-MDRD 52; Globulin 3.8 g/dL (2.4-3.5); Glucose 265 mg/dL (70-105); Protein, Total 7.7 g/dL (6.0-8.3); Sodium 130 mmol/L (136-145)
[2018-07-07 15:11] LABS: Bilirubin Small (Negative); Blood, Urine Large (Negative); Clarity CLOUDY (Clear); Glucose, Urine (Dipstick) >=1000 mg/dL (Negative); Leukocyte Small (Negative); Nitrite Negative (Negative); Protein, Urine (Dipstick) 30 mg/dL (Neg-Trace); Specific Gravity, Urine 1.026 (1.002-1.036); pH, Urine 5.5 (5.0-9.0)
[2018-07-07 15:13] LABS: Bacteria/HPF 1+ HPF (None Seen); Pathc Cast-AUWi Flag 0.43 (0-2.49); Squamous Epithelial None Seen HPF (0-3); WBC/HPF 21-50 HPF (0-3)
[2018-07-07 15:14] LABS: Yeast-AUWi Flag 84.7 (0-25.0)
[2018-07-07 15:32] LABS: Hyaline Casts/LPF 0-3 HYALINE CAST LPF (0-3 Hyaline); Yeast-All Forms None Seen HPF (None Seen)
--- NOTE | 2018-07-07 16:51 | RAD ---
SINGLE VIEW CHEST: Date: 07/07/18 COMPARISON: 03/26/18. HISTORY: Hematuria and fever. FINDINGS: Single view of the chest shows a normal sized cardiomediastinal silhouette. There is no evidence of c onsolidation, mass, or pleural effusion. The bones are unremarkable. IMPRESSION: No evidence of acute cardiopulmonary disease. POS: [facility]
== END 2018-07-07 17:29 | disposition home or self-care (01) ==
LOC: ERS 12:54
DX: J11.1 Influenza due to unidentified influenza virus with other respiratory manifestations (principal); R31.9 Hematuria, unspecified; I48.91 Unspecified atrial fibrillation; I25.10 Atherosclerotic heart disease of native coronary artery without angina pectoris; E03.9 Hypothyroidism, unspecified; K21.9 Gastro-esophageal reflux disease without esophagitis; I11.0 Hypertensive heart disease with heart failure; I50.9 Heart failure, unspecified; E11.9 Type 2 diabetes mellitus without complications; Z79.899 Other long term (current) drug therapy; Z86.73 Personal history of transient ischemic attack (TIA), and cerebral infarction without residual deficits; Z79.82 Long term (current) use of aspirin; Z79.891 Long term (current) use of opiate analgesic
CPT/HCPCS: 36415; 71045; 80053; 81003; 81015; 83605; 83880; 85025; 87040; 87077; 87086; 87186; 87804

== ENCOUNTER 2019-10-11 16:22 | Outpatient (CLI) | payer BC ==
--- NOTE | 2019-10-11 16:39 | RAD ---
Chest 2 views HISTORY: Atrial fibrillation. COMPARISON: 07/07/2018. FINDINGS: Cardiac silhouette and pulmonary vasculature are unremarkable. Mediastinum is midline. No c onfluent airspace consolidation, pneumothorax, or pleural fluid are apparent. Calcified granulomata are consistent with healed granulomatous disease. Degenerative changes of the thoracic spine are apparent on the lateral view. IMPRESSION: No active cardiopulmonary abnormalities are demonstrated.
== END 2019-10-11 16:23 | disposition home or self-care (01) ==
LOC: BICRAD 16:22
PROVIDERS: ATTEND Internal Medicine Cardiovascular Disease
DX: I48.0 Paroxysmal atrial fibrillation (principal)
CPT/HCPCS: 71046

== ENCOUNTER 2019-12-15 20:13 | Observation (INO) | payer BC ==
--- NOTE | 2019-12-15 20:43 | RAD ---
Exam: Chest one view HISTORY:Chest pain Comparison: 07/07/2018 FINDINGS: Cardiac silhouette: Normal Aorta: Unremarkable Pulmonary vessels: Normal Costophrenic angles: Clear LUNGS: No masses or consolidation. Pneumothorax: None Osseous abnormalities: None IMPRESSION: No acute cardiopulmonary process.
[2019-12-15 20:47] LABS: #Basophils 0.1 thou/uL (0.0-0.2); #Eosinphils 0.2 thou/uL (0.0-0.7); #Lymphocytes 1.2 thou/uL (1.20-3.40); #Monocytes 0.7 thou/uL (0.11-0.59); #Neutrophils 6.8 thou/uL (1.40-6.50); %Eosinophils 1.8 % (0.0-10.0); %Lymphocytes 13.3 % (21.0-51.0); %Monocytes 7.7 % (0.0-10.0); %Neutrophils 76.2 % (42.0-75.0); Hemoglobin 16.7 g/dL (14.0-18.0); Mean Corpuscular HGB CONC 33.4 g/dL (32.0-36.0); Mean Corpuscular Volume 95.8 fL (78.0-98.0); Mean Platelet Volume 8.8 fL (7.4-10.4); Platelet Count 231 thou/uL (130-400); Red Blood Cell (RBC) Count 5.22 mill/uL (4.70-6.10); White Blood Cell (WBC) Count 8.9 thou/uL (4.8-10.8)
[2019-12-15 21:47] LABS: Albumin 3.6 g/dL (3.5-5.0)
[2019-12-15 21:48] LABS: Chloride 100 mmol/L (98-107); Potassium 4.1 mmol/L (3.5-5.1); Sodium 134 mmol/L (136-145)
[2019-12-15 21:49] LABS: Calcium 8.2 mg/dL (7.8-10.44); Glucose 250 mg/dL (70-105)
[2019-12-15 21:50] LABS: Globulin 3.1 g/dL (2.4-3.5); Protein, Total 6.7 g/dL (6.0-8.3)
[2019-12-15 21:51] LABS: Anion Gap 14 mmol/L (10-20); Bilirubin, Total 0.6 mg/dL (0.2-1.2); Carbon Dioxide 24 mmol/L (22-29)
[2019-12-15 21:52] LABS: Alkaline Phosphatase 106 U/L (40-110)
[2019-12-15 21:53] LABS: Calc. Creatinine Clearance 0 mL/min (70-130); Estimated GFR-MDRD 49
[2019-12-15 21:54] LABS: BUN (Urea Nitrogen) 27 mg/dL (8.4-25.7)
[2019-12-15 21:55] LABS: ALT (SGPT) 47 U/L (8-55); AST (SGOT) 38 U/L (5-34)
[2019-12-15] MEDS ORDERED: Aspirin Chewable 81 MG TAB ONE (23:16)
[2019-12-16 00:14] LABS: Troponin I 0.015 ng/mL (< 0.028)
[2019-12-16] MEDS ORDERED: Nitroglycerin 0.4 MG TAB (25 Tab Bottle) PO PRN (01:05)
[2019-12-16] MEDS ORDERED: HumaLOG 300 UNITS/3 ML VIAL SC PRN ×3 (01:07→11:35)
[2019-12-16] MEDS ORDERED: Dextrose 5% in Water 1,000 ML IV PRN (01:07)
[2019-12-16] MEDS ORDERED: Dextrose 50% Abboject 50 ML SYRINGE SLOW IVP PRN (01:07)
[2019-12-16] MEDS ORDERED: Sodium Chloride 0.9% 1,000 ML IV SCH (01:15)
[2019-12-16 02:09] VITALS: BMI 38.1
--- NOTE | 2019-12-16 02:40 | HP ---
TIME OF ASSESSMENT: 0030 hours. CHIEF COMPLAINT: Chest pain. PRIMARY CARE PHYSICIAN: Dr. Jeffery Monsalve. HISTORY OF PRESENT ILLNESS: Mr. Tellez is a 59-year-old gentleman, who presented to the emergency department today with complaints of pain to the left side of the sternum that started at 2:00 p.m. this afternoon. He states it was "pressure" at a 5/10 in severity, which he states has come and gone since then. At present, he states the pain has eased and is nearly gone. He states he was sitting down when the pain started. He states he had been contemplating going home given the normal EKG that was done in the ER with initial troponin being negative. He states he recalls strenuous activity yesterday and given some mild reproducible discomfort on palpation to the left side of the sternum. He thought maybe it was musculoskeletal in nature. The patient states he recently underwent an echocardiogram and believes he may have also undergone a stress test done by Dr. Woodward less than 6 months ago. He states his EF had improved and that everything was "normal." ED COURSE: The patient underwent an EKG in the emergency department that showed normal sinus rhythm with a heart rate of 75. He had T-wave inversion in lead aVL, otherwise no ST changes present or other EKG abnormalities. He was given 324 mg of aspirin p.o. A chest x-ray was obtained demonstrating no acute cardiopulmonary process. LABORATORY STUDIES: Done showed a white count of 8.9, hemoglobin 16.7, hematocrit 50, platelets 231, neutrophils 76.2%. Sodium 134, potassium 4.1, BUN 27, creatinine 1.46 compared to 1.14 in September. GFR 49 compared to 66 in September 2019. Glucose was 250. AST mildly elevated at 38. Initial troponin negative. BNP 56.9. Albumin 3.6. REVIEW OF SYSTEMS: He denies having any associated shortness of breath or diaphoresis. At present, he feels well in himself and denies any other complaints. Has not had any cough or hemoptysis. No nausea or vomiting. Denies any abdominal discomfort. States he briefly thought it may have been indigestion, but denies having any symptoms of reflux. All other review of systems negative. Of note, patient states the pain was nonradiating. ALLERGIES: 1. BACITRACIN. 2. NEOMYCIN SULFATE. 3. NEOSPORIN. 4. POLYMYXIN B. CURRENT MEDICATIONS: 1. Ozempic. 2. Jardiance. 3. Mupirocin. 4. Tylenol with Codeine. 5. Cephalexin. 6. Potassium chloride. 7. Eliquis. 8. Atorvastatin. 9. Spironolactone. 10. Torsemide. 11. Amiodarone. 12. Levothyroxine. 13. Glyburide. 14. Carvedilol. 15. Zetia. 16. Pantoprazole. 17. Levemir. 18. Zolpidem. 19. Lorazepam. PAST MEDICAL HISTORY: 1. Coronary artery disease. 2. CHF. 3. History of PA in 2013. 4. Atrial fibrillation. 5. Hypothyroidism. 6. Ischemic cerebrovascular accident. 7. GERD. 8. Type 2 diabetes mellitus. 9. Hypertension. 10. Obesity. PAST SURGICAL HISTORY: 1. Coronary artery stent x1. 2. Cholecystectomy. 3. Thyroidectomy. 4. Breast lift/reduction. 5. Tummy tuck. 6. Gastric sleeve. SOCIAL HISTORY: The patient denies any tobacco use, alcohol consumption, or illicit drug use. PHYSICAL EXAMINATION: GENERAL: The patient appears obese, well developed, and in no acute distress. VITAL SIGNS: Temperature 98.2, pulse 67, respirations 20, blood pressure 140/83 , O2 saturation 94% on room air. HEENT: Normocephalic and atraumatic. Pupils are equal, round, reactive to light. Sclerae icterus. Oropharynx is clear. NECK: Supple. No lymphadenopathy. LUNGS: Clear bilaterally without any wheezes, rales, or rhonchi. CARDIAC: Irregularly irregular. No murmurs. No reproducible chest wall tenderness on palpation. ABDOMEN: Soft, obese, nontender, nondistended. Normoactive bowel sounds present. No guarding or rigidity. EXTREMITIES: No lower leg swelling or edema. Peripheral pulses normal. NEUROLOGIC: Alert and oriented x3. No neuro deficits on exam. SKIN: Warm and dry. INVESTIGATIONS: As mentioned above in HPI. IMPRESSION AND PLAN: Mr. Tellez is a 59-year-old gentleman, presenting with chest pain, who has multiple comorbidities including coronary artery disease and previous coronary artery stent, who has a HEART score of 6, therefore being admitted for management of the following. 1. Chest pain. We will continue to trend troponins. The patient states he recently had an echo and a stress test, which he was told both looked good. We will need to obtain these records from Dr. Woodward's office. If we can confirm that he did in fact have a normal stress test recently, then we would need to consult Cardiology to determine if heart catheterization indicated if the patient continues with intermittent chest pain and/or troponins become elevated. Again, we will continue to trend troponins. Will keep NPO and continue daily aspirin. 2. Acute kidney injury. The patient with elevated creatinine of 1.46, GFR of 49 , BUN of 27. We will continue to monitor renal function and we will give gentle IV fluids given history of congestive heart failure. 3. Hypertension. Monitor blood pressure. Reconcile home medications once verified. 4. Type 2 diabetes mellitus. We will initiate sliding scale and monitor blood glucose. 5. Hypothyroidism. We will check TSH. Resume home medications once verified. 6. Hyperlipidemia. Reconcile home medication once verified. Lipid panel with morning labs. 7. Gastroesophageal reflux disease. Continue pantoprazole which he takes at home. 8. Atrial fibrillation. The patient will be on cardiac monitoring. Resume home medications once verified. 9. Deep venous thrombosis prophylaxis. Mechanical SCDs. The patient is also ambulatory. 10. Code status full. Surrogate decision maker is his sister, Candice Tripp. Job ID: [id number] [facility]
[2019-12-16 02:58] LABS: #Basophils 0.1 thou/uL (0.0-0.2); #Eosinphils 0.1 thou/uL (0.0-0.7); #Monocytes 0.5 thou/uL (0.11-0.59); #Neutrophils 4.3 thou/uL (1.40-6.50); %Basophils 1.1 % (0.0-1.0); %Eosinophils 2.4 % (0.0-10.0); %Lymphocytes 16.3 % (21.0-51.0); %Monocytes 8.4 % (0.0-10.0); %Neutrophils 71.8 % (42.0-75.0); Hemoglobin 15.9 g/dL (14.0-18.0); Mean Corpuscular Hemoglobin 32.8 pg (27.0-31.0); Mean Corpuscular Volume 96.7 fL (78.0-98.0); Mean Platelet Volume 7.6 fL (7.4-10.4); Platelet Count 192 thou/uL (130-400); RBC Distribution Width 12.3 % (11.5-14.5); Red Blood Cell (RBC) Count 4.85 mill/uL (4.70-6.10)
[2019-12-16 03:15] LABS: Anion Gap 15 mmol/L (10-20); BUN (Urea Nitrogen) 25 mg/dL (8.4-25.7); Calc. Creatinine Clearance 123 mL/min (70-130); Calcium 8.6 mg/dL (7.8-10.44); Carbon Dioxide 26 mmol/L (22-29); Cardiac Risk 2.5 (Less than 4.5); Chloride 101 mmol/L (98-107); Cholesterol 108 mg/dl (< 200 Desired); Estimated GFR-MDRD 57; Glucose 147 mg/dL (70-105); HDL Cholesterol 43 mg/dL (>60 Neg Risk); LDL Cholesterol, Calculated 53 mg/dL; Magnesium 1.9 mg/dL (1.6-2.6); Potassium 3.7 mmol/L (3.5-5.1); Sodium 138 mmol/L (136-145); Triglycerides 60 mg/dL (Less than 150); Troponin I 0.031 ng/mL (< 0.028)
[2019-12-16] MEDS ORDERED: Zolpidem Tartrate 5 MG TAB PO PRN (04:08)
[2019-12-16] MEDS ORDERED: Lorazepam 1 MG TAB PO PRN (04:08)
[2019-12-16] MEDS ORDERED: Lorazepam 1 MG TAB PO SCH (04:15)
[2019-12-16] MEDS ORDERED: Zolpidem Tartrate 5 MG TAB PO SCH (04:15)
[2019-12-16] MEDS ORDERED: Levothyroxine 175 MCG TAB PO SCH (06:00)
[2019-12-16] MEDS ORDERED: Amiodarone 200 MG TAB PO SCH (09:00)
[2019-12-16] MEDS ORDERED: Apixaban 5 MG TAB PO SCH (09:00)
[2019-12-16] MEDS ORDERED: Ezetimibe 10 MG TAB PO SCH (09:00)
[2019-12-16] MEDS ORDERED: Famotidine 20 MG TAB PO SCH (09:00)
[2019-12-16] MEDS ORDERED: Aspirin 325 mg Enteric Coated Tablet PO SCH (09:00)
[2019-12-16] MEDS ORDERED: Atorvastatin Calcium 40 MG TAB PO SCH (09:00)
[2019-12-16] MEDS ORDERED: Spironolactone 25 MG TAB PO SCH (09:00)
[2019-12-16] MEDS ORDERED: Torsemide 20 MG TAB PO SCH (09:00)
[2019-12-16] MEDS ORDERED: Carvedilol 3.125 MG TAB PO SCH (09:00)
[2019-12-16] MEDS ORDERED: Insulin Glargine 20 UNITS in Pre-Filled Syringe 1 EACH SC SCH (11:45)
[2019-12-16] MEDS ORDERED: glyBURIDE 5 MG TAB PO SCH ×2 (11:45→17:00)
--- NOTE | 2019-12-16 15:23 | EKG ---
Test Reason : Blood Pressure : / mmHG Vent. Rate : 075 BPM Atrial Rate : 075 BPM P-R Int : 188 ms QRS Dur : 100 ms QT Int : 398 ms P-R-T Axes : 025 -12 081 degrees QTc Int : 444 ms Normal sinus rhythm Low voltage QRS Septal infarct , age undetermined Abnormal ECG Confirmed by DEBBIE SALAZAR DO ([id number]), senior editor SYD GREEN ([id number]) on 12/16/2019 3:22:50 PM Referred By: Confirmed By:DEBBIE SALAZAR DO
[2019-12-16 16:08] VITALS: BP 137/75; TEMP 97.5
--- NOTE | 2019-12-16 21:38 | CON ---
DATE OF CONSULTATION: HISTORY: Ralph Tellez is a 59-year-old white male whom I initially evaluated in April 2013. The year prior to that, he underwent Cardiolite treadmill testing at [facility] and was told there was no evidence of ischemia. In addition, he became sick 5 days prior to that admission with nausea, vomiting, diarrhea, which most of his family members had contracted. Three days prior to admission, he mowed his lawn and noticed that he became short of breath doing that. However, he never had shortness of breath before. He had to stop 6-7 times to catch his breath, where in the past, he could mow the whole yard without difficulties. He denied any chest discomfort at that time. On the day prior to admission, he went to see his primary care physician at [facility] and was seen for gastroenteritis and increased shortness of breath. Apparently, an EKG was performed, which did not show any specific abnormalities. Later that day, at approximately 4 p.m., he began to have intense chest discomfort associated with shortness of breath and diaphoresis. The pain was worse with lying supine and it improved if he would sit and lean forward. There is no pleuritic component to the pain. This lasted approximately 45 minutes. He did not have any chest discomfort the rest of the day nor the following day. However, he felt extremely weak, fatigued, and short of breath with minimal exertion. He then went back to see his primary physician and repeat EKG was very abnormal and he was sent to [facility]. EKG in the emergency room showed anterolateral infarction with [address]-segment elevation in V1-V6. He also developed Q-waves anteriorly. He underwent cardiac catheterization, which revealed total occlusion of the mid LAD with no retrograde filling. There was a 50% lesion in the second diagonal. The circumflex had a 20% mid stenosis. The right coronary artery had 20% mid stenosis. He underwent thrombectomy of the LAD with a Pronto catheter. Resolute 2.5 x 30 mm stent was placed in the proximal LAD. His peak CK was 3212, MB 257.3. Troponin I 128.662. 12 hours after stent placement, he developed atrial fibrillation with fast ventricular response. He was treated with intravenous Cardizem and digoxin, placed on IV amiodarone. He ultimately converted back to sinus rhythm. 30 hours after placement of the stent, he was restarted on therapeutic Lovenox for his atrial fibrillation. Echo was technically difficult with ejection fraction of 30% to 35%. There was probable apical thrombus present. There was mild mitral and mild tricuspid regurgitation. He underwent transesophageal echo which did not reveal any evidence of left atrial appendage or left atrial thrombus. However, he did have a large thrombus in his left ventricular apex. It was felt that he should be anticoagulated for at least 3 months with Coumadin as well as continue with aspirin and Plavix for his drug-eluting stent. During that admission, his cholesterol was 170, triglycerides 112, HDL 41, LDL 107. He was discharged and then readmitted 9 days later with congestive heart failure which responded to diuretics. He was again admitted in June 2013 with community-acquired pneumonia versus bronchitis with congestive heart failure exacerbation. In July 2013, he was admitted with atypical chest pain. Cardiac enzymes were negative. In July 2013, he was seen in the office, he was walking 3 miles per day. He denied any chest discomfort during the walks. Echo revealed ejection fraction of 35% to 40% with mild anterior and apical hypokinesis, left atrial enlargement, moderate mitral regurgitation, mild tricuspid regurgitation , and mild pulmonic insufficiency. Echo revealed no evidence of pericardial effusion or LV thrombus. He was admitted in October 2013 with aching and possible fever and chills and developed pleuritic chest pain which was definitely worse when he was supine in bed. CT angiogram of the chest showed no evidence of pulmonary embolism. However, he did have a pericardial effusion and right-sided pleural effusion. He was placed on Motrin 600 b.i.d. and ultimately colchicine 0.6 mg b.i.d. to try to avoid an incidence in someone who is on aspirin, Plavix, and Coumadin. His pain improved. He also had paroxysmal episodes of atrial fibrillation and was placed on intravenous Cardizem, converted to sinus rhythm. During that admission, amiodarone was changed to 200 mg b.i.d. due to recurrence of atrial fibrillation. He has continued to be followed intermittently in the office. In March 2018 , he was admitted with atrial fibrillation with fast ventricular response. The amiodarone had been discontinued due to thyroid problems. He was resumed on his amiodarone in 2017. Overall, he has been doing quite well with ejection fraction of 40% to 45%. He has continued on Eliquis for his paroxysmal atrial fibrillation. 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 The area was tender to touch. He did have sharp pain lasting 30 seconds and then 5 to 10 minutes later, this recurred. This continued for approximately 8 hours and he came to the emergency room for further evaluation. He denies any pleuritic component to the pain. PAST MEDICAL HISTORY: Hypertension, diabetes, hyperlipidemia. He had acute pericarditis in 2013. He had a STEMI with total occlusion in the LAD and placement of drug-eluting stent in 2012. He had left ventricular thrombus, which resolved with anticoagulation. Paroxysmal atrial fibrillation. OPERATIONS: Gastric sleeve, thyroidectomy. MEDICATIONS: As listed in the chart. ALLERGIES: [id number]. SOCIAL HISTORY: He does not smoke. 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 He occasionally has wine. FAMILY HISTORY: Father had 3 bypass surgeries. REVIEW OF SYSTEMS: 12-point review of systems is otherwise unremarkable. PHYSICAL EXAMINATION: VITAL SIGNS: Blood pressure 137/75, pulse of 55. HEENT: PERRL. NECK: Supple. CHEST: Clear. CARDIAC: S1 and S2 normal without any S3, S4, or murmurs. ABDOMEN: Obese, normal bowel sounds. No tenderness. EXTREMITIES: Revealed no clubbing, cyanosis, or edema. NEUROLOGIC: Grossly intact. SKIN: Warm and dry. MUSCULOSKELETAL: Reveals tender left chest wall which reproduces pain. LABORATORY DATA: EKG reveals normal sinus rhythm, low voltage and septal infarction. Cardiac enzymes are unremarkable. CBC is unremarkable. TSH 8.4678. Cholesterol 108, triglycerides 60, HDL 43, LDL 53. Sodium 138, potassium 3.7, chloride 101, carbon dioxide 26, BUN 25, creatinine 1.30. IMPRESSION: 1. History most consistent with chest wall pain. 2. History of anterolateral STEMI in April 2013 occurring one day prior to admission. He underwent placement of drug-eluting stent in the left anterior descending. 3. Ischemic cardiomyopathy with ejection fraction of 40% to 45%. 4. Episode of pericarditis in the past. 5. History of apical thrombus seen on transesophageal echo and transthoracic echo in April 2013. Three months later in July 2013, echocardiogram demonstrated no apical thrombus. 6. Paroxysmal atrial fibrillation when he was first admitted with myocardial infarction and having recurrence of this in October 2013. 7. Hypertension. 8. Diabetes. 9. Hyperlipidemia, under good control. 10. Positive family history. 11. Obesity, status post gastric sleeve placement. PLAN: Mr. Tellez's discomfort appears to be chest wall in nature with palpable tenderness and he has had negative cardiac enzymes. I do not feel that any further cardiac evaluation is warranted for this and feel that he may be discharged. Job ID: [id number] MTDD
[2019-12-17] MEDS ORDERED: Aspirin 81 mg Enteric Coated Tablet PO SCH (09:00)
--- NOTE | 2019-12-17 09:43 | DIS ---
DATE OF ADMISSION: 12/15/2019 DATE OF DISCHARGE: 12/16/2019 DISCHARGE DISPOSITION: Home. FOLLOWUP: 1. Follow up with Dr. Jeffery Monsalve in 1 week. 2. Follow up with Dr. Steven Woodward as scheduled. ALLERGIES: THE PATIENT IS ALLERGIC TO TRIPLE ANTIBIOTIC. DISCHARGE MEDICATIONS: All home medications were left unchanged. The patient was seen and examined on the day of discharge. Denies any new complaints. PHYSICAL EXAMINATION: VITAL SIGNS: Showed temperature 97.5, respirations of 14, pulse rate of 55, blood pressure of 137/75, O2 saturation 97% on room air. LUNGS: Clear to auscultation bilaterally. HEART: S1 and S2 present. Regular. Bradycardic. ABDOMEN: Soft. Bowel sounds present. EXTREMITIES: No calf tenderness. NEUROLOGIC: Grossly nonfocal. BRIEF HOSPITAL COURSE: The patient is a 59-year-old male with coronary artery disease, status post stent placement in the past, presented to the emergency room with chest discomfort. The chest discomfort was left side, that started around 2 p.m. in the afternoon yesterday. It was pressure-like, moderate in intensity. At this time, his chest discomfort has resolved. His maximum troponin was 0.031. BNP was 93.1. He was evaluated by Cardiology, Dr. Steven Woodward. Per Dr. Woodward, the chest discomfort is probably due to musculoskeletal in origin. He has been cleared by Cardiology for discharge. FINAL DIAGNOSES: 1. Chest discomfort, suspected due to chest wall pain. 2. History of anterolateral ST-elevation myocardial infarction in 2012, status post left anterior descending stent placement. 3. Ischemic cardiomyopathy with ejection fraction 40% to 45%. 4. History of apical thrombus in 2012. Repeat echocardiogram in 2013, showed no apical thrombus. 5. Paroxysmal atrial fibrillation diagnosed in 2012, on anticoagulation. 6. Hypertension. 7. Episode of pericarditis in the past. 8. Diabetes mellitus, type 2. 9. Hyperlipidemia. 10. Family history. 11. Obesity with a BMI 38.1, status post gastric sleeve. The patient understands the above plan of care. Job ID: [id number]
== END 2019-12-16 19:15 | disposition home or self-care (01) ==
LOC: ERS 20:13 → 2NO 23:06
PROVIDERS: ADMIT Internal Medicine; ATTEND Internal Medicine
DX: R07.89 Other chest pain (principal); I48.0 Paroxysmal atrial fibrillation; I11.0 Hypertensive heart disease with heart failure; I50.9 Heart failure, unspecified; I25.10 Atherosclerotic heart disease of native coronary artery without angina pectoris; I25.5 Ischemic cardiomyopathy; I25.2 Old myocardial infarction; E89.0 Postprocedural hypothyroidism; E11.9 Type 2 diabetes mellitus without complications; E78.5 Hyperlipidemia, unspecified; N17.9 Acute kidney failure, unspecified; K21.9 Gastro-esophageal reflux disease without esophagitis; E66.9 Obesity, unspecified; Z68.38 Body mass index [BMI] 38.0-38.9, adult; Z79.01 Long term (current) use of anticoagulants; Z79.4 Long term (current) use of insulin; Z79.899 Other long term (current) drug therapy; Z88.1 Allergy status to other antibiotic agents; Z95.5 Presence of coronary angioplasty implant and graft
CPT/HCPCS: 36415; 36416; 71045; 80048; 80053; 80061; 83735; 83880; 84443; 84484; 85025; 93005; 94760; G0378; J1815

== ENCOUNTER 2020-11-14 10:25 | Outpatient (CLI) | payer BC | END 2020-11-14 10:26 | disposition home or self-care (01) | LOC: BICRAD 10:25 | PROVIDERS: ATTEND Internal Medicine Cardiovascular Disease | DX: I48.0 Paroxysmal atrial fibrillation (principal) | CPT/HCPCS: 71046 ==

== ENCOUNTER 2023-01-09 13:45 | Outpatient (CLI) | payer BC | END 2023-01-09 13:46 | disposition home or self-care (01) | LOC: BICRAD 13:45 | PROVIDERS: ATTEND Nurse Practitioner Family | DX: I48.0 Paroxysmal atrial fibrillation (principal) | CPT/HCPCS: 71046 ==